=== PATIENT | female | born 1960 | race Caucasian/White ===

== ENCOUNTER 2023-10-04 11:49 | Emergency (ER) | payer OTHER, SELFPAY ==
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
[2023-10-04 11:51] VITALS: BP 142/77; PULSE 71; RESP 18; O2SAT 100; BMI 27.3
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
[2023-10-04] MEDS: Ibuprofen 600 MG TABLET PO (11:59)
[2023-10-04 14:08] VITALS: BP 121/77; PULSE 68; RESP 20; TEMP 36.6; O2SAT 98
[2023-10-04 14:33] VITALS: BP 121/77; PULSE 68; RESP 20; TEMP 36.7; O2SAT 98
== END 2023-10-04 14:33 | disposition home or self-care (01) ==
PROVIDERS: Emergency Provider Emergency Medicine; PCP Family Medicine
DX: S13.4XXA Sprain of ligaments of cervical spine, initial encounter (principal); S29.9XXA Unspecified injury of thorax, initial encounter; R07.89 Other chest pain; M54.2 Cervicalgia; R51.9 Headache, unspecified; M25.512 Pain in left shoulder; V43.52XA Car driver injured in collision with other type car in traffic accident, initial encounter; Y93.9 Activity, unspecified; Y92.410 Unspecified street and highway as the place of occurrence of the external cause; Y99.8 Other external cause status
CPT/HCPCS: 70450; 70486; 71045; 72125; 73030; 99283; 99284